=== PATIENT | female | born 1945 | race African-American/Black ===

== ENCOUNTER 2020-06-18 12:06 | Outpatient (CLI) | payer MEDICARE ==
--- NOTE | 2020-06-18 14:16 | MMO ---
Bilateral MAMMO Bilat Screen [facility]. CLINICAL HISTORY: Patient is 75 years old and is seen for screening. The patient has no family history of breast cancer. The patient has no personal history of cancer. VIEWS: The views performed were: bilateral craniocaudal with tomosynthesis and bilateral mediolateral oblique with tomosynthesis. FILMS COMPARED: The present examination has been compared to a prior imaging study performed at [facility] on 04/25/2016. This study has been interpreted with the assistance of computer-aided detection. MAMMOGRAM FINDINGS: There are scattered fibroglandular densities. Benign calcifications are noted bilaterally. There are no suspicious masses, suspicious calcifications, or new areas of architectural distortion. IMPRESSION: THERE IS NO MAMMOGRAPHIC EVIDENCE OF MALIGNANCY. A ROUTINE FOLLOW-UP MAMMOGRAM IN 1 YEAR IS RECOMMENDED. THE RESULTS OF THIS EXAM WERE SENT TO THE PATIENT. ACR BI-RADS Category 2 - Benign finding MAMMOGRAPHY NOTE: 1. A negative mammogram report should not delay a biopsy if a dominant of clinically suspicious mass is present. 2. Approximately 10% to 15% of breast cancers are not detected by mammography. 3. Adenosis and dense breasts may obscure an underlying neoplasm. Reported by: SUSANNA LYNNE MD Electonically Signed: [id number]
== END 2020-06-18 12:07 | disposition home or self-care (01) ==
LOC: BICMAMMO 12:06
PROVIDERS: ATTEND Family Medicine
DX: Z12.31 Encounter for screening mammogram for malignant neoplasm of breast (principal)
CPT/HCPCS: 77063; 77067

== ENCOUNTER 2021-07-15 14:09 | Outpatient (CLI) | payer MEDICARE | END 2021-07-15 14:10 | disposition home or self-care (01) | LOC: BICMAMMO 14:09 | PROVIDERS: ATTEND Family Medicine | DX: Z12.31 Encounter for screening mammogram for malignant neoplasm of breast (principal) | CPT/HCPCS: 77063; 77067 ==

== ENCOUNTER 2021-09-12 16:41 | Inpatient (IN) | payer MEDICARE ==
[2021-09-12 17:15] LABS: Mean Corpuscular HGB CONC 31.5 g/dL (32.0-36.0); Mean Corpuscular Hemoglobin 24.6 pg (27.0-31.0); Mean Corpuscular Volume 78.1 fL (78.0-98.0); Mean Platelet Volume 8.7 fL (7.4-10.4); Platelet Count 716 thou/uL (130-400); RBC Distribution Width 23.5 % (11.5-14.5); Red Blood Cell (RBC) Count 2.46 mill/uL (4.20-5.40); White Blood Cell (WBC) Count 12.8 thou/uL (4.8-10.8)
[2021-09-12] MEDS ORDERED: Diltiazem 125 MG/25 ML ONE (17:20)
[2021-09-12 17:38] LABS: Anisocytosis MODERATE=16-30 cells (100X) (0-5/hpf); Band 11 % (5-11); Hypochromia MODERATE=16-30 cells (100X) (0-5/hpf); Lymphocytes 9 % (21-51); MDiff Complete? YES; Monocytes 7 % (0-10); Neutrophil 73 % (42-75); Platelet Morphology Comment Appears Increased; Reflex for Review?? YES
[2021-09-12 17:50] LABS: ALT (SGPT) 9 U/L (8-55); AST (SGOT) 13 U/L (5-34); Albumin 3.5 g/dL (3.4-4.8); Alkaline Phosphatase 95 U/L (40-110); Anion Gap 16 mmol/L (10-20); BUN (Urea Nitrogen) 37 mg/dL (9.8-20.1); Bilirubin, Total 0.4 mg/dL (0.2-1.2); Calc. Creatinine Clearance 0 mL/min (70-130); Calcium 9.1 mg/dL (7.8-10.44); Carbon Dioxide 26 mmol/L (23-31); Chloride 102 mmol/L (98-107); Glucose 139 mg/dL (83-110); Potassium 4.2 mmol/L (3.5-5.1); Protein, Total 6.5 g/dL (5.8-8.1); Sodium 140 mmol/L (136-145)
[2021-09-12 18:13] LABS: CKMB 1.3 ng/mL (0-6.6)
[2021-09-12] MEDS ORDERED: Ondansetron PF 4 MG/2 ML Vial IVP PRN (19:46)
[2021-09-12] MEDS ORDERED: Pantoprazole 40 MG VIAL ONE (19:47)
[2021-09-12] MEDS ORDERED: Digoxin 0.5 MG/2 ML AMP ONE (19:47)
[2021-09-12] MEDS ORDERED: EPINEPHrine 1 MG/ML VIAL ONE (19:50)
[2021-09-12] MEDS ORDERED: EPINEPHrine 1 MG/10 ML Abboject SYRINGE ONE (19:50)
[2021-09-12 21:40] VITALS: BMI 25.5
[2021-09-12 21:48] LABS: Hemoglobin 6.3 g/dL (12.0-16.0)
[2021-09-12 22:32] LABS: CKMB 1.5 ng/mL (0-6.6)
[2021-09-12 22:45] LABS: INR-International Normal Ratio 1.1; Prothrombin Time 14.1 sec (12.0-14.7)
[2021-09-13] MEDS: Digoxin 0.5 MG/2 ML AMP SLOW IVP SCH ×3 (00:27→13:20)
[2021-09-13 04:22] LABS: Anion Gap 15 mmol/L (10-20); BUN (Urea Nitrogen) 38 mg/dL (9.8-20.1); Calc. Creatinine Clearance 24 mL/min (70-130); Calcium 8.5 mg/dL (7.8-10.44); Carbon Dioxide 25 mmol/L (23-31); Chloride 102 mmol/L (98-107); Glucose 100 mg/dL (83-110); Iron 32 ug/dL (50-170); Iron Binding Capacity, Total 296 mcg/dL (265-497); Potassium 3.9 mmol/L (3.5-5.1); Sodium 138 mmol/L (136-145)
[2021-09-13 05:22] LABS: Hemoglobin 7.2 g/dL (12.0-16.0); Mean Corpuscular Hemoglobin 26.9 pg (27.0-31.0); Mean Corpuscular Volume 81.4 fL (78.0-98.0); Mean Platelet Volume 8.9 fL (7.4-10.4); Platelet Count 533 thou/uL (130-400); RBC Distribution Width 20.1 % (11.5-14.5); Red Blood Cell (RBC) Count 2.69 mill/uL (4.20-5.40)
[2021-09-13 05:32] LABS: SARS-CoV-2 NAA Rapid Test Not Detected (NotDetected)
[2021-09-13 05:39] LABS: Anisocytosis SLIGHT = 6-15 cells (100X) (0-5/hpf); Band 5 % (5-11); Eosinophils 2 % (0-10); Hypochromia SLIGHT = 6-15 cells (100X) (0-5/hpf); Lymphocytes 13 % (21-51); MDiff Complete? YES; Monocytes 7 % (0-10); Neutrophil 73 % (42-75); Nucleated RBC 5 % (0); Platelet Morphology Comment Appears Increased; Target Cells SLIGHT = 2-5 cells (100X) (0-1/hpf); White Blood Cell (WBC) Count 10.8 thou/uL (4.8-10.8)
[2021-09-13 07:43] LABS: Bacteria/HPF None Seen HPF (None Seen); Bilirubin Negative (Negative); Blood, Urine Negative (Negative); Clarity Turbid (Clear); Glucose, Urine (Dipstick) Normal (Negative); Ketone, Urine Negative (Negative); Leukocyte 25 Leu/uL (Negative); Nitrite Negative (Negative); Protein, Urine (Dipstick) 100 mg/dL (Neg-Trace); RBC/HPF 0-3 HPF (0-3); Specific Gravity, Urine 1.017 (1.002-1.036); Urine Culture Reflex No No; Urobilinogen Normal mg/dL (Less than 2); pH, Urine 5.5 (5.0-9.0)
[2021-09-13 07:51] LABS: Hemoglobin 7.2 g/dL (12.0-16.0)
[2021-09-13] MEDS ORDERED: Pantoprazole 40 MG VIAL IVP SCH (09:00)
[2021-09-13] MEDS ORDERED: Sodium Chloride 0.9% 500 ML IV SCH (12:30)
[2021-09-13] MEDS ORDERED: Sodium Chloride 0.9% 1,000 ML IV SCH (12:45)
[2021-09-13 13:09] LABS: Hemoglobin 7.3 g/dL (12.0-16.0)
[2021-09-13] MEDS ORDERED: Norepinephrine 4 MG/4 ML VIAL ONE ×2 (14:31→14:32)
[2021-09-13] MEDS ORDERED: Norepinephrine 8 MG/0.9% NS 250 ML IVPB SCH (15:00)
[2021-09-13] MEDS ORDERED: Furosemide 20 MG/2 ML VIAL SLOW IVP SCH (15:15)
[2021-09-13] MEDS ORDERED: Phenylephrine 0.25% Nasal Spray 15 ML BOT ONE (15:57)
[2021-09-13] MEDS ORDERED: Phenylephrine 40 MG in Sodium Chloride 0.9% 250 ML 250 ML IVPB SCH ×2 (16:00→16:15)
[2021-09-13] MEDS: Vasopressin 20 UNIT, Admixture Fee 1 EACH in Sodium Chloride 0.9% 50 ML IV SCH ×2 (16:05→16:20)
[2021-09-13] MEDS: Pantoprazole 80 MG, Admixture Fee 1 EACH in Sodium Chloride 0.9% 100 ML IVPB SCH (16:05)
[2021-09-13] MEDS ORDERED: Heparin 10,000 UNITS/ 10 ML VIAL SLOW IVP SCH (17:30)
[2021-09-13] MEDS: Heparin 25,000 units/D5W 500 ML IV SCH (18:13)
[2021-09-13 19:41] LABS: Hemoglobin 7.9 g/dL (12.0-16.0); Mean Corpuscular HGB CONC 32.5 g/dL (32.0-36.0); Mean Corpuscular Hemoglobin 26.8 pg (27.0-31.0); Mean Corpuscular Volume 82.7 fL (78.0-98.0); Mean Platelet Volume 8.5 fL (7.4-10.4); Platelet Count 453 thou/uL (130-400); Red Blood Cell (RBC) Count 2.93 mill/uL (4.20-5.40); White Blood Cell (WBC) Count 16.5 thou/uL (4.8-10.8)
[2021-09-14 01:14] LABS: Anion Gap 14 mmol/L (10-20); BUN (Urea Nitrogen) 44 mg/dL (9.8-20.1); Calc. Creatinine Clearance 25 mL/min (70-130); Calcium 7.9 mg/dL (7.8-10.44); Carbon Dioxide 23 mmol/L (23-31); Chloride 107 mmol/L (98-107); Glucose 105 mg/dL (83-110); Magnesium 2.9 mg/dL (1.6-2.6); Potassium 4.1 mmol/L (3.5-5.1); Sodium 140 mmol/L (136-145)
[2021-09-14 01:40] LABS: Hemoglobin 7.8 g/dL (12.0-16.0); Mean Corpuscular HGB CONC 32.7 g/dL (32.0-36.0); Mean Corpuscular Hemoglobin 27.2 pg (27.0-31.0); Mean Corpuscular Volume 83.1 fL (78.0-98.0); Mean Platelet Volume 8.4 fL (7.4-10.4); Platelet Count 457 thou/uL (130-400); RBC Distribution Width 20.5 % (11.5-14.5); Red Blood Cell (RBC) Count 2.87 mill/uL (4.20-5.40); White Blood Cell (WBC) Count 15.7 thou/uL (4.8-10.8)
[2021-09-14 01:41] LABS: Band 14 % (5-11); Lymphocytes 22 % (21-51); MDiff Complete? YES; Monocytes 6 % (0-10); Neutrophil 58 % (42-75); Nucleated RBC 7 % (0)
[2021-09-14 02:05] LABS: PTT 195.3 sec (22.9-36.1)
[2021-09-14] MEDS: Pantoprazole 80 MG, Admixture Fee 1 EACH in Sodium Chloride 0.9% 100 ML IVPB SCH ×3 (02:23→23:37)
[2021-09-14 03:08] LABS: Digoxin 3.93 ng/mL (0.8-2.0)
[2021-09-14 10:25] LABS: Hemoglobin 7.4 g/dL (12.0-16.0); Mean Corpuscular HGB CONC 31.1 g/dL (32.0-36.0); Mean Corpuscular Volume 83.6 fL (78.0-98.0); Mean Platelet Volume 8.6 fL (7.4-10.4); Platelet Count 464 thou/uL (130-400); RBC Distribution Width 20.2 % (11.5-14.5); Red Blood Cell (RBC) Count 2.83 mill/uL (4.20-5.40); White Blood Cell (WBC) Count 13.6 thou/uL (4.8-10.8)
[2021-09-14] MEDS: Heparin 25,000 units/D5W 500 ML IV SCH (17:48)
[2021-09-14] MEDS: Acetaminophen 325 MG TAB PO PRN (17:52)
[2021-09-14 20:58] LABS: Hemoglobin 6.9 g/dL (12.0-16.0); Mean Corpuscular Hemoglobin 28.4 pg (27.0-31.0); Mean Corpuscular Volume 83.5 fL (78.0-98.0); Mean Platelet Volume 8.5 fL (7.4-10.4); Platelet Count 363 thou/uL (130-400); RBC Distribution Width 20.6 % (11.5-14.5); Red Blood Cell (RBC) Count 2.43 mill/uL (4.20-5.40); White Blood Cell (WBC) Count 10.1 thou/uL (4.8-10.8)
[2021-09-15] MEDS: Metoprolol Tartrate 5 MG/5 ML VIAL IVP PRN ×2 (00:41→22:10)
[2021-09-15] MEDS: Acetaminophen 325 MG TAB PO PRN ×2 (02:39→15:15)
[2021-09-15 04:44] LABS: Digoxin 1.84 ng/mL (0.8-2.0)
[2021-09-15 04:51] LABS: Hemoglobin 8.3 g/dL (12.0-16.0); Mean Corpuscular HGB CONC 33.5 g/dL (32.0-36.0); Mean Corpuscular Hemoglobin 28.3 pg (27.0-31.0); Mean Corpuscular Volume 84.5 fL (78.0-98.0); Platelet Count 304 thou/uL (130-400); RBC Distribution Width 19.9 % (11.5-14.5); Red Blood Cell (RBC) Count 2.94 mill/uL (4.20-5.40); White Blood Cell (WBC) Count 10.3 thou/uL (4.8-10.8)
[2021-09-15 05:11] LABS: Anion Gap 13 mmol/L (10-20); BUN (Urea Nitrogen) 26 mg/dL (9.8-20.1); Calc. Creatinine Clearance 57 mL/min (70-130); Calcium 8.2 mg/dL (7.8-10.44); Carbon Dioxide 24 mmol/L (23-31); Chloride 107 mmol/L (98-107); Glucose 85 mg/dL (83-110); Magnesium 2.4 mg/dL (1.6-2.6); Potassium 3.7 mmol/L (3.5-5.1); Sodium 140 mmol/L (136-145)
[2021-09-15 05:28] LABS: #Eosinphils 0.5 thou/uL (0.0-0.7); #Lymphocytes 1.4 thou/uL (1.20-3.40); #Monocytes 0.8 thou/uL (0.11-0.59); #Neutrophils 7.5 thou/uL (1.40-6.50); %Basophils 0.3 % (0.0-1.0); %Eosinophils 4.7 % (0.0-10.0); %Lymphocytes 13.5 % (21.0-51.0); %Monocytes 8.2 % (0.0-10.0); %Neutrophils 73.3 % (42.0-75.0)
[2021-09-15] MEDS: Pantoprazole 80 MG, Admixture Fee 1 EACH in Sodium Chloride 0.9% 100 ML IVPB SCH (06:43)
[2021-09-15] MEDS ORDERED: Mag-Al Plus 1200 MG/1200 MG/120 MG/30 ML UDCUP PO PRN (09:12)
[2021-09-15 12:44] LABS: Hemoglobin 8.4 g/dL (12.0-16.0); Mean Corpuscular HGB CONC 33.3 g/dL (32.0-36.0); Mean Corpuscular Volume 84.2 fL (78.0-98.0); Mean Platelet Volume 8.5 fL (7.4-10.4); Platelet Count 387 thou/uL (130-400); RBC Distribution Width 20.3 % (11.5-14.5); Red Blood Cell (RBC) Count 3.01 mill/uL (4.20-5.40); White Blood Cell (WBC) Count 12.2 thou/uL (4.8-10.8)
[2021-09-15 13:00] LABS: PTT 136.9 sec (22.9-36.1)
[2021-09-15] MEDS: Heparin 25,000 units/D5W 500 ML IV SCH (16:21)
[2021-09-15 16:57] LABS: CKMB 2.2 ng/mL (0-6.6)
[2021-09-15] MEDS: Apixaban 5 MG TAB PO SCH (21:18)
[2021-09-15] MEDS: Pantoprazole 40 MG VIAL IVP SCH (21:19)
[2021-09-15 22:00] LABS: Critical Call Chem Troponin I RESULT DECREASING
[2021-09-15 22:19] LABS: CKMB 1.4 ng/mL (0-6.6)
[2021-09-16] MEDS: Acetaminophen 325 MG TAB PO PRN ×2 (06:52→19:46)
[2021-09-16 07:30] LABS: #Eosinphils 0.4 thou/uL (0.0-0.7); #Lymphocytes 1.4 thou/uL (1.20-3.40); #Monocytes 1.1 thou/uL (0.11-0.59); #Neutrophils 10.4 thou/uL (1.40-6.50); %Basophils 0.1 % (0.0-1.0); %Eosinophils 2.9 % (0.0-10.0); %Lymphocytes 10.7 % (21.0-51.0); %Monocytes 8.1 % (0.0-10.0); %Neutrophils 78.2 % (42.0-75.0); Hemoglobin 8.9 g/dL (12.0-16.0); Mean Corpuscular HGB CONC 31.9 g/dL (32.0-36.0); Mean Corpuscular Volume 84.6 fL (78.0-98.0); Platelet Count 390 thou/uL (130-400); RBC Distribution Width 20.2 % (11.5-14.5); White Blood Cell (WBC) Count 13.3 thou/uL (4.8-10.8)
[2021-09-16 07:45] LABS: Anion Gap 13 mmol/L (10-20); BUN (Urea Nitrogen) 15 mg/dL (9.8-20.1); Calc. Creatinine Clearance 73 mL/min (70-130); Calcium 8.5 mg/dL (7.8-10.44); Carbon Dioxide 26 mmol/L (23-31); Chloride 107 mmol/L (98-107); Glucose 86 mg/dL (83-110); Potassium 3.8 mmol/L (3.5-5.1); Sodium 142 mmol/L (136-145)
[2021-09-16 08:17] LABS: Band 3 % (5-11); Eosinophils 3 % (0-10); Hypochromia SLIGHT = 6-15 cells (100X) (0-5/hpf); Lymphocytes 16 % (21-51); MDiff Complete? YES; Monocytes 8 % (0-10); Neutrophil 70 % (42-75); Ovalocytes SLIGHT = 2-5 cells (100X) (0-1/hpf); Platelet Morphology Comment Appears Adequate; Polychromasia SLIGHT = 2-3 cells (100X) (0-2/hpf)
[2021-09-16] MEDS ORDERED: Iopamidol-370 76% 500 ML 1 ML ONE (09:12)
[2021-09-16] MEDS: Apixaban 5 MG TAB PO SCH ×2 (09:42→19:46)
[2021-09-16] MEDS: Pantoprazole 40 MG VIAL IVP SCH ×2 (09:43→19:46)
[2021-09-17 05:12] LABS: Hemoglobin 8.2 g/dL (12.0-16.0); Mean Corpuscular HGB CONC 32.2 g/dL (32.0-36.0); Mean Corpuscular Volume 83.8 fL (78.0-98.0); Mean Platelet Volume 8.6 fL (7.4-10.4); Platelet Count 434 thou/uL (130-400); RBC Distribution Width 20.3 % (11.5-14.5); Red Blood Cell (RBC) Count 3.03 mill/uL (4.20-5.40); White Blood Cell (WBC) Count 12.1 thou/uL (4.8-10.8)
[2021-09-17 05:29] LABS: Anion Gap 10 mmol/L (10-20); BUN (Urea Nitrogen) 10 mg/dL (9.8-20.1); Calc. Creatinine Clearance 77 mL/min (70-130); Calcium 8.4 mg/dL (7.8-10.44); Carbon Dioxide 27 mmol/L (23-31); Chloride 108 mmol/L (98-107); Glucose 92 mg/dL (83-110); Potassium 3.6 mmol/L (3.5-5.1); Sodium 141 mmol/L (136-145)
[2021-09-17 05:55] LABS: #Basophils 0.1 thou/uL (0.0-0.2); #Eosinphils 1.5 thou/uL (0.0-0.7); #Lymphocytes 1.6 thou/uL (1.20-3.40); #Monocytes 1.1 thou/uL (0.11-0.59); #Neutrophils 7.8 thou/uL (1.40-6.50); %Basophils 0.4 % (0.0-1.0); %Lymphocytes 13.2 % (21.0-51.0); %Monocytes 9.4 % (0.0-10.0)
[2021-09-17] MEDS ORDERED: Electrolyte Replacement Protocol FS PRN (07:45)
[2021-09-17] MEDS ORDERED: Electrolyte Replacement Protocol 1 EACH FS SCH (07:45)
[2021-09-17] MEDS: Atorvastatin Calcium 10 MG TAB PO SCH (09:08)
[2021-09-17] MEDS: Lisinopril 10 MG TAB PO SCH (09:08)
[2021-09-17] MEDS: Apixaban 5 MG TAB PO SCH ×2 (09:08→20:27)
[2021-09-17] MEDS: Pantoprazole 40 MG VIAL IVP SCH ×2 (09:09→20:27)
[2021-09-18 04:06] LABS: #Eosinphils 1.5 thou/uL (0.0-0.7); #Lymphocytes 1.7 thou/uL (1.20-3.40); #Monocytes 1.2 thou/uL (0.11-0.59); #Neutrophils 7.7 thou/uL (1.40-6.50); %Basophils 0.1 % (0.0-1.0); %Eosinophils 12.1 % (0.0-10.0); %Lymphocytes 13.8 % (21.0-51.0); %Monocytes 10.2 % (0.0-10.0); %Neutrophils 63.9 % (42.0-75.0); Hemoglobin 8.1 g/dL (12.0-16.0); Mean Corpuscular HGB CONC 31.6 g/dL (32.0-36.0); Mean Corpuscular Hemoglobin 26.5 pg (27.0-31.0); Mean Corpuscular Volume 83.8 fL (78.0-98.0); Platelet Count 424 thou/uL (130-400); RBC Distribution Width 20.7 % (11.5-14.5); Red Blood Cell (RBC) Count 3.04 mill/uL (4.20-5.40)
[2021-09-18 04:38] LABS: Anion Gap 11 mmol/L (10-20); BUN (Urea Nitrogen) 8 mg/dL (9.8-20.1); Calc. Creatinine Clearance 74 mL/min (70-130); Calcium 8.4 mg/dL (7.8-10.44); Carbon Dioxide 26 mmol/L (23-31); Chloride 108 mmol/L (98-107); Glucose 92 mg/dL (83-110); Magnesium 1.7 mg/dL (1.6-2.6); Phosphorus 2.7 mg/dL (2.3-4.7); Potassium 3.5 mmol/L (3.5-5.1); Sodium 141 mmol/L (136-145)
[2021-09-18] MEDS ORDERED: Magnesium 2 GM/50 ML(in water) 2 GM in Premix Bag 1 BAG IVPB SCH (05:00)
[2021-09-18] MEDS ORDERED: Potassium Chloride 40 MEQ in Sodium Chloride 0.9% 250 ML 250 ML IVPB SCH (06:00)
[2021-09-18] MEDS: Lisinopril 10 MG TAB PO SCH (08:06)
[2021-09-18] MEDS: Atorvastatin Calcium 10 MG TAB PO SCH (08:06)
[2021-09-18] MEDS: Apixaban 5 MG TAB PO SCH ×2 (08:06→20:16)
[2021-09-18] MEDS: Pantoprazole 40 MG VIAL IVP SCH (08:07)
[2021-09-19 05:03] LABS: #Eosinphils 1.2 thou/uL (0.0-0.7); #Lymphocytes 2.3 thou/uL (1.20-3.40); #Monocytes 1.1 thou/uL (0.11-0.59); #Neutrophils 6.8 thou/uL (1.40-6.50); %Basophils 0.2 % (0.0-1.0); %Eosinophils 10.3 % (0.0-10.0); %Lymphocytes 20.4 % (21.0-51.0); %Monocytes 9.6 % (0.0-10.0); %Neutrophils 59.6 % (42.0-75.0); Hemoglobin 8.4 g/dL (12.0-16.0); Mean Corpuscular HGB CONC 30.7 g/dL (32.0-36.0); Mean Corpuscular Hemoglobin 25.8 pg (27.0-31.0); Mean Corpuscular Volume 84.2 fL (78.0-98.0); Mean Platelet Volume 8.6 fL (7.4-10.4); Platelet Count 449 thou/uL (130-400); Red Blood Cell (RBC) Count 3.25 mill/uL (4.20-5.40); White Blood Cell (WBC) Count 11.4 thou/uL (4.8-10.8)
[2021-09-19 05:28] LABS: Anion Gap 12 mmol/L (10-20); BUN (Urea Nitrogen) 7 mg/dL (9.8-20.1); Calc. Creatinine Clearance 74 mL/min (70-130); Calcium 8.7 mg/dL (7.8-10.44); Carbon Dioxide 25 mmol/L (23-31); Chloride 108 mmol/L (98-107); Glucose 97 mg/dL (83-110); Magnesium 1.8 mg/dL (1.6-2.6); Sodium 141 mmol/L (136-145)
[2021-09-19] MEDS ORDERED: Magnesium 2 GM/50 ML(in water) 2 GM in Premix Bag 1 BAG IVPB SCH (07:00)
[2021-09-19] MEDS: Apixaban 5 MG TAB PO SCH ×2 (09:11→20:39)
[2021-09-19] MEDS: Atorvastatin Calcium 10 MG TAB PO SCH (09:12)
[2021-09-19 11:58] LABS: SARS-CoV-2 PCR by NAA Not Detected (NotDetected)
[2021-09-19] MEDS: Lisinopril 10 MG TAB PO SCH (15:28)
[2021-09-20] MEDS: Lisinopril 10 MG TAB PO SCH (08:37)
[2021-09-20] MEDS: Apixaban 5 MG TAB PO SCH (08:40)
[2021-09-20] MEDS: Atorvastatin Calcium 10 MG TAB PO SCH (08:40)
[2021-09-20 12:01] VITALS: BP 169/74; TEMP 98.1
[2021-09-23] MEDS ORDERED: Ergocalciferol 1.25 MG(50,000 UNITS) CAP PO SCH (09:00)
== END 2021-09-20 13:22 | disposition home or self-care (01) | DRG 175 ==
LOC: ERS 16:41 → IMCU/EMU 18:15 → CCU 09-13 14:35 → IMCU/EMU 09-16 13:32 → NEURO 09-20 00:54
PROVIDERS: ADMIT Family Medicine; ATTEND Internal Medicine
PROC: 30233N1 Transfusion of Nonautologous Red Blood Cells into Peripheral Vein, Percutaneous Approach (ICD-10-PCS; 2021-09-12)
PROC: 3E03317 Introduction of Other Thrombolytic into Peripheral Vein, Percutaneous Approach (ICD-10-PCS; principal; 2021-09-13)
PROC: 5A09357 Assistance with Respiratory Ventilation, Less than 24 Consecutive Hours, Continuous Positive Airway Pressure (ICD-10-PCS; 2021-09-13)
PROC: 03HY32Z Insertion of Monitoring Device into Upper Artery, Percutaneous Approach (ICD-10-PCS; 2021-09-13)
PROC: 3E033XZ Introduction of Vasopressor into Peripheral Vein, Percutaneous Approach (ICD-10-PCS; 2021-09-13)
DX: I26.99 Other pulmonary embolism without acute cor pulmonale (principal); Z66 Do not resuscitate; Z20.822 Contact with and (suspected) exposure to COVID-19; I21.A1 Myocardial infarction type 2; N17.0 Acute kidney failure with tubular necrosis; J96.01 Acute respiratory failure with hypoxia; R57.0 Cardiogenic shock; I48.19 Other persistent atrial fibrillation; K92.2 Gastrointestinal hemorrhage, unspecified; D62 Acute posthemorrhagic anemia; I13.0 Hypertensive heart and chronic kidney disease with heart failure and stage 1 through stage 4 chronic kidney disease, or unspecified chronic kidney disease; E78.5 Hyperlipidemia, unspecified; M19.90 Unspecified osteoarthritis, unspecified site; I08.2 Rheumatic disorders of both aortic and tricuspid valves; N18.2 Chronic kidney disease, stage 2 (mild); D63.1 Anemia in chronic kidney disease; E83.42 Hypomagnesemia; I12.9 Hypertensive chronic kidney disease with stage 1 through stage 4 chronic kidney disease, or unspecified chronic kidney disease; E86.0 Dehydration; I50.810 Right heart failure, unspecified; Z90.49 Acquired absence of other specified parts of digestive tract; Z85.038 Personal history of other malignant neoplasm of large intestine; Z79.899 Other long term (current) drug therapy; Z82.49 Family history of ischemic heart disease and other diseases of the circulatory system
CPT/HCPCS: 36415; 36430; 70450; 71045; 71275; 80048; 80053; 80162; 81001; 82274; 82378; 82553; 82728; 83540; 83550; 83735; 83880; 84100; 84443; 84484; 85025; 85060; 85379; 85610; 85730; 86850; 86900; 86901; 93005; 93010; 93306; 93970; 96365; 96374; 96375; C9113; J0171; J1160; J1644; J1940; J2370; J2997; J3475; J3480; J3490; J7030; J7050; P9016; Q9967; U0002; U0003; U0005

== ENCOUNTER 2021-10-28 13:06 | Inpatient (IN) | payer MEDICARE ==
[2021-10-28 14:07] LABS: #Lymphocytes 1.2 thou/uL (1.20-3.40); #Monocytes 0.4 thou/uL (0.11-0.59); #Neutrophils 4.9 thou/uL (1.40-6.50); %Basophils 0.1 % (0.0-1.0); %Eosinophils 0.3 % (0.0-10.0); %Lymphocytes 17.8 % (21.0-51.0); %Monocytes 6.7 % (0.0-10.0); %Neutrophils 75.1 % (42.0-75.0); Hemoglobin 10.4 g/dL (12.0-16.0); Mean Corpuscular HGB CONC 31.9 g/dL (32.0-36.0); Mean Corpuscular Hemoglobin 25.3 pg (27.0-31.0); Mean Corpuscular Volume 79.3 fL (78.0-98.0); Mean Platelet Volume 6.9 fL (7.4-10.4); Platelet Count 294 thou/uL (130-400); RBC Distribution Width 22.1 % (11.5-14.5); Red Blood Cell (RBC) Count 4.09 mill/uL (4.20-5.40); White Blood Cell (WBC) Count 6.5 thou/uL (4.8-10.8)
[2021-10-28] MEDS ORDERED: Ondansetron PF 4 MG/2 ML Vial ONE (14:14)
[2021-10-28 14:17] LABS: ALT (SGPT) 7 U/L (8-55); AST (SGOT) 14 U/L (5-34); Albumin 4.1 g/dL (3.4-4.8); Alkaline Phosphatase 61 U/L (40-110); Anion Gap 17 mmol/L (10-20); BUN (Urea Nitrogen) 5 mg/dL (9.8-20.1); Bilirubin, Total 1.2 mg/dL (0.2-1.2); Calc. Creatinine Clearance 0 mL/min (70-130); Calcium 10.1 mg/dL (7.8-10.44); Carbon Dioxide 24 mmol/L (23-31); Chloride 106 mmol/L (98-107); Globulin 3.6 g/dL (2.4-3.5); Glucose 100 mg/dL (83-110); Lipase 11 U/L (8-78); Potassium 3.5 mmol/L (3.5-5.1); Protein, Total 7.7 g/dL (5.8-8.1); Sodium 143 mmol/L (136-145)
[2021-10-28 14:56] LABS: Magnesium 1.8 mg/dL (1.6-2.6)
[2021-10-28] MEDS ORDERED: HYDROcodone/Acetaminophen 5/325 mg Tablet PO PRN (16:05)
[2021-10-28] MEDS ORDERED: Bisacodyl 10 MG SUPP PR SCH (16:15)
[2021-10-28] MEDS ORDERED: Polyethylene Glycol 3350 17 GM Packet PO SCH (16:15)
[2021-10-28] MEDS ORDERED: Furosemide 40 MG TAB PO SCH (16:45)
[2021-10-28 16:53] LABS: Troponin I 0.034 ng/mL (< 0.028)
[2021-10-28 16:56] LABS: Bilirubin Negative (Negative); Blood, Urine Negative (Negative); Clarity Clear (Clear); Glucose, Urine (Dipstick) Normal (Negative); Ketone, Urine 40 mg/dL (Negative); Leukocyte Negative Leu/uL (Negative); Nitrite Negative (Negative); Protein, Urine (Dipstick) Negative (Neg-Trace); Specific Gravity, Urine 1.011 (1.002-1.036); Urobilinogen Normal mg/dL (Less than 2); pH, Urine 8.5 (5.0-9.0)
[2021-10-28 19:33] LABS: Troponin I 0.037 ng/mL (< 0.028)
[2021-10-28] MEDS: Acetaminophen 325 MG TAB PO PRN (20:19)
[2021-10-28] MEDS: Senokot S 8.6-50 MG TAB PO SCH (20:19)
[2021-10-28] MEDS: Apixaban 5 MG TAB PO SCH (20:19)
[2021-10-28 22:57] LABS: Troponin I 0.053 ng/mL (< 0.028)
[2021-10-29 05:11] LABS: Anion Gap 13 mmol/L (10-20); BUN (Urea Nitrogen) 4 mg/dL (9.8-20.1); Calc. Creatinine Clearance 74 mL/min (70-130); Calcium 9.5 mg/dL (7.8-10.44); Carbon Dioxide 24 mmol/L (23-31); Chloride 105 mmol/L (98-107); Glucose 124 mg/dL (83-110); Potassium 3.1 mmol/L (3.5-5.1); Sodium 139 mmol/L (136-145)
[2021-10-29 05:42] LABS: #Lymphocytes 1.5 thou/uL (1.20-3.40); #Monocytes 0.6 thou/uL (0.11-0.59); %Basophils 0.1 % (0.0-1.0); %Eosinophils 0.5 % (0.0-10.0); %Monocytes 6.8 % (0.0-10.0); %Neutrophils 76.6 % (42.0-75.0); Anisocytosis SLIGHT = 6-15 cells (100X) (0-5/hpf); Large Platelets SLIGHT; MDiff Complete? YES; Mean Corpuscular HGB CONC 31.9 g/dL (32.0-36.0); Mean Corpuscular Hemoglobin 25.4 pg (27.0-31.0); Mean Corpuscular Volume 79.8 fL (78.0-98.0); Platelet Count 310 thou/uL (130-400); Platelet Morphology Comment Appears Adequate; RBC Distribution Width 21.9 % (11.5-14.5); Red Blood Cell (RBC) Count 3.94 mill/uL (4.20-5.40); White Blood Cell (WBC) Count 9.1 thou/uL (4.8-10.8)
[2021-10-29] MEDS: Apixaban 5 MG TAB PO SCH ×2 (09:24→20:57)
[2021-10-29 12:35] LABS: SARS-CoV-2 PCR by NAA Not Detected (NotDetected)
[2021-10-29] MEDS ORDERED: Potassium Chloride 20 MEQ TAB PO SCH (13:45)
[2021-10-29] MEDS ORDERED: Electrolyte Replacement Protocol 1 EACH FS PRN (13:45)
[2021-10-29] MEDS ORDERED: Magnesium 2 GM/50 ML(in water) 2 GM in Premix Bag 1 BAG IVPB SCH (13:45)
[2021-10-29] MEDS ORDERED: PROPOFOL 200 MG/20 ML VIAL ONE (14:44)
[2021-10-29] MEDS ORDERED: Lidocaine 1% PF 5 ML VIAL ONE (14:44)
[2021-10-29] MEDS: Senokot S 8.6-50 MG TAB PO SCH ×2 (16:17→20:57)
[2021-10-29] MEDS: Polyethylene Glycol 3350 17 GM Packet PO SCH (16:17)
[2021-10-29] MEDS: Furosemide 40 MG TAB PO SCH (16:17)
[2021-10-29] MEDS: Acetaminophen 325 MG TAB PO PRN (20:57)
[2021-10-29] MEDS: Ondansetron PF 4 MG/2 ML Vial IVP PRN (20:58)
[2021-10-30] MEDS ORDERED: Metoprolol Tartrate 5 MG/5 ML VIAL IVP SCH (01:00)
[2021-10-30 05:17] LABS: Anion Gap 13 mmol/L (10-20); BUN (Urea Nitrogen) 5 mg/dL (9.8-20.1); Calc. Creatinine Clearance 66 mL/min (70-130); Calcium 9.1 mg/dL (7.8-10.44); Carbon Dioxide 24 mmol/L (23-31); Chloride 106 mmol/L (98-107); Glucose 93 mg/dL (83-110); Phosphorus 3.3 mg/dL (2.3-4.7); Potassium 3.5 mmol/L (3.5-5.1); Sodium 139 mmol/L (136-145)
[2021-10-30 05:21] LABS: #Lymphocytes 1.4 thou/uL (1.20-3.40); #Monocytes 0.7 thou/uL (0.11-0.59); #Neutrophils 6.3 thou/uL (1.40-6.50); %Basophils 0.4 % (0.0-1.0); %Eosinophils 0.5 % (0.0-10.0); %Lymphocytes 16.1 % (21.0-51.0); %Monocytes 8.6 % (0.0-10.0); %Neutrophils 74.5 % (42.0-75.0); Hemoglobin 10.2 g/dL (12.0-16.0); Large Platelets SLIGHT; MDiff Complete? YES; Mean Corpuscular HGB CONC 31.8 g/dL (32.0-36.0); Mean Corpuscular Hemoglobin 25.4 pg (27.0-31.0); Mean Corpuscular Volume 79.9 fL (78.0-98.0); Mean Platelet Volume 7.8 fL (7.4-10.4); Platelet Count 291 thou/uL (130-400); Platelet Morphology Comment Appears Adequate; RBC Distribution Width 21.9 % (11.5-14.5); Red Blood Cell (RBC) Count 4.04 mill/uL (4.20-5.40); White Blood Cell (WBC) Count 8.5 thou/uL (4.8-10.8)
[2021-10-30] MEDS ORDERED: Magnesium 2 GM/50 ML(in water) 2 GM in Premix Bag 1 BAG IVPB SCH (05:45)
[2021-10-30] MEDS ORDERED: Potassium Chloride 20 MEQ TAB PO SCH (05:45)
[2021-10-30] MEDS ORDERED: Dronedarone HCl 400 MG TAB PO SCH (08:30)
[2021-10-30] MEDS: Furosemide 40 MG TAB PO SCH (08:58)
[2021-10-30] MEDS: Apixaban 5 MG TAB PO SCH ×2 (08:59→20:27)
[2021-10-30] MEDS: Senokot S 8.6-50 MG TAB PO SCH ×2 (08:59→20:27)
[2021-10-30] MEDS: Polyethylene Glycol 3350 17 GM Packet PO SCH (08:59)
[2021-10-30] MEDS: Dronedarone HCl 400 MG TAB PO SCH (17:33)
[2021-10-31 05:05] LABS: Albumin 3.3 g/dL (3.4-4.8); Anion Gap 14 mmol/L (10-20); BUN (Urea Nitrogen) 22 mg/dL (9.8-20.1); BUN/Creatinine Ratio 22.22; Calc. Creatinine Clearance 54 mL/min (70-130); Carbon Dioxide 23 mmol/L (23-31); Chloride 106 mmol/L (98-107); Glucose 99 mg/dL (83-110); Magnesium 2.1 mg/dL (1.6-2.6); Phosphorus 2.7 mg/dL (2.3-4.7); Potassium 3.7 mmol/L (3.5-5.1); Sodium 139 mmol/L (136-145)
[2021-10-31 06:12] LABS: #Lymphocytes 0.6 thou/uL (1.20-3.40); #Monocytes 0.5 thou/uL (0.11-0.59); #Neutrophils 8.8 thou/uL (1.40-6.50); %Basophils 0.2 % (0.0-1.0); %Eosinophils 0.1 % (0.0-10.0); %Lymphocytes 5.7 % (21.0-51.0); %Monocytes 5.5 % (0.0-10.0); %Neutrophils 88.6 % (42.0-75.0); Anisocytosis SLIGHT = 6-15 cells (100X) (0-5/hpf); Hemoglobin 9.7 g/dL (12.0-16.0); MDiff Complete? YES; Mean Corpuscular HGB CONC 31.8 g/dL (32.0-36.0); Mean Corpuscular Hemoglobin 25.5 pg (27.0-31.0); Mean Corpuscular Volume 80.4 fL (78.0-98.0); Mean Platelet Volume 8.3 fL (7.4-10.4); Platelet Count 251 thou/uL (130-400); RBC Distribution Width 22.8 % (11.5-14.5); Red Blood Cell (RBC) Count 3.81 mill/uL (4.20-5.40); Target Cells SLIGHT = 2-5 cells (100X) (0-1/hpf); White Blood Cell (WBC) Count 9.9 thou/uL (4.8-10.8)
[2021-10-31] MEDS ORDERED: Furosemide 40 MG TAB PO SCH (07:34)
[2021-10-31] MEDS ORDERED: Furosemide 20 MG TAB PO SCH (07:45)
[2021-10-31] MEDS: Dronedarone HCl 400 MG TAB PO SCH ×2 (09:07→17:24)
[2021-10-31] MEDS: Senokot S 8.6-50 MG TAB PO SCH ×2 (09:07→20:54)
[2021-10-31] MEDS: Polyethylene Glycol 3350 17 GM Packet PO SCH (09:07)
[2021-10-31] MEDS: Apixaban 5 MG TAB PO SCH ×2 (09:07→20:54)
[2021-10-31] MEDS: Furosemide 40 MG TAB PO SCH (09:15)
[2021-10-31] MEDS ORDERED: Potassium Chloride 20 MEQ TAB PO SCH (17:45)
[2021-10-31] MEDS: Atorvastatin Calcium 20 MG TAB PO SCH (20:54)
[2021-11-01] MEDS ORDERED: Sodium Chloride 0.9% 500 ML IV SCH ×4 (01:00→22:30)
[2021-11-01] MEDS: Acetaminophen 325 MG TAB PO PRN (01:16)
[2021-11-01] MEDS ORDERED: Midodrine HCl 5 MG TAB PO SCH ×2 (04:14→21:30)
[2021-11-01] MEDS ORDERED: Furosemide 20 MG TAB PO SCH (07:30)
[2021-11-01] MEDS: Apixaban 5 MG TAB PO SCH (08:31)
[2021-11-01] MEDS: Dronedarone HCl 400 MG TAB PO SCH ×2 (08:32→16:36)
[2021-11-01] MEDS: Senokot S 8.6-50 MG TAB PO SCH ×2 (08:32→20:07)
[2021-11-01] MEDS: Polyethylene Glycol 3350 17 GM Packet PO SCH (08:32)
[2021-11-01] MEDS ORDERED: Ketamine 50 MG/ML (10ML VIAL) ONE (09:59)
[2021-11-01] MEDS ORDERED: Digoxin 0.5 MG/2 ML AMP SLOW IVP SCH ×2 (15:30→16:30)
[2021-11-01 15:34] LABS: #Basophils 0.1 thou/uL (0.0-0.2); #Monocytes 0.6 thou/uL (0.11-0.59); #Neutrophils 8.5 thou/uL (1.40-6.50); %Basophils 0.6 % (0.0-1.0); %Eosinophils 0.2 % (0.0-10.0); %Lymphocytes 9.7 % (21.0-51.0); %Monocytes 6.3 % (0.0-10.0); %Neutrophils 83.3 % (42.0-75.0); Hemoglobin 7.6 g/dL (12.0-16.0); Mean Corpuscular HGB CONC 31.6 g/dL (32.0-36.0); Mean Corpuscular Hemoglobin 25.1 pg (27.0-31.0); Mean Corpuscular Volume 79.4 fL (78.0-98.0); Mean Platelet Volume 7.3 fL (7.4-10.4); Platelet Count 199 thou/uL (130-400); RBC Distribution Width 22.8 % (11.5-14.5); Red Blood Cell (RBC) Count 3.05 mill/uL (4.20-5.40); White Blood Cell (WBC) Count 10.2 thou/uL (4.8-10.8)
[2021-11-01 17:09] LABS: Anion Gap 12 mmol/L (10-20); BUN (Urea Nitrogen) 66 mg/dL (9.8-20.1); Calc. Creatinine Clearance 28 mL/min (70-130); Calcium 8.7 mg/dL (7.8-10.44); Carbon Dioxide 21 mmol/L (23-31); Chloride 110 mmol/L (98-107); Glucose 103 mg/dL (83-110); Potassium 3.4 mmol/L (3.5-5.1); Sodium 140 mmol/L (136-145)
[2021-11-01] MEDS ORDERED: Digoxin 0.25 MG TAB PO SCH (18:30)
[2021-11-01] MEDS ORDERED: K-Phos Neutral 250 MG TAB PO SCH (19:15)
[2021-11-01] MEDS ORDERED: Potassium Chloride 20 MEQ TAB PO SCH (19:15)
[2021-11-01] MEDS: Ondansetron PF 4 MG/2 ML Vial IVP PRN (19:31)
[2021-11-01] MEDS: Pantoprazole 40 MG VIAL IVP SCH (20:01)
[2021-11-01] MEDS: Atorvastatin Calcium 20 MG TAB PO SCH (20:01)
[2021-11-01] MEDS: Sodium Chloride 0.9% 1,000 ML IV SCH (20:04)
[2021-11-01 21:11] LABS: Hemoglobin 6.8 g/dL (12.0-16.0); Platelet Count 168 thou/uL (130-400)
[2021-11-01] MEDS ORDERED: Magnesium 2 GM/50 ML(in water) 2 GM in Premix Bag 1 BAG IVPB SCH (22:00)
[2021-11-01] MEDS ORDERED: Norepinephrine 8 MG/0.9% NS 250 ML IVPB SCH (22:30)
[2021-11-01] MEDS ORDERED: Pantoprazole 40 MG VIAL IVP SCH (22:30)
[2021-11-01] MEDS: Octreotide Acetate 1,250 MCG in Sodium Chloride 0.9% 250 ML 250 ML IVPB SCH (23:49)
[2021-11-02] MEDS: Sodium Chloride 0.9% 1,000 ML IV SCH ×3 (03:26→20:08)
[2021-11-02] MEDS ORDERED: Sodium Chloride 0.9% 1,000 ML IV SCH (04:00)
[2021-11-02 06:49] LABS: #Basophils 0.1 thou/uL (0.0-0.2); #Eosinphils 0.1 thou/uL (0.0-0.7); #Lymphocytes 1.8 thou/uL (1.20-3.40); #Monocytes 0.8 thou/uL (0.11-0.59); #Neutrophils 4.2 thou/uL (1.40-6.50); %Basophils 1.4 % (0.0-1.0); %Eosinophils 1.7 % (0.0-10.0); %Lymphocytes 25.7 % (21.0-51.0); %Monocytes 10.8 % (0.0-10.0); %Neutrophils 60.4 % (42.0-75.0); Hemoglobin 7.6 g/dL (12.0-16.0); Mean Corpuscular HGB CONC 31.8 g/dL (32.0-36.0); Mean Corpuscular Hemoglobin 26.6 pg (27.0-31.0); Mean Corpuscular Volume 83.5 fL (78.0-98.0); Mean Platelet Volume 8.5 fL (7.4-10.4); Platelet Count 183 thou/uL (130-400); RBC Distribution Width 21.3 % (11.5-14.5); Red Blood Cell (RBC) Count 2.87 mill/uL (4.20-5.40)
[2021-11-02 06:52] LABS: Reticulocyte Count 2.5 % (0.5-1.5)
[2021-11-02 07:16] LABS: ALT (SGPT) 8 U/L (8-55); AST (SGOT) 17 U/L (5-34); Albumin 2.5 g/dL (3.4-4.8); Alkaline Phosphatase 40 U/L (40-110); Anion Gap 12 mmol/L (10-20); BUN (Urea Nitrogen) 64 mg/dL (9.8-20.1); Bilirubin, Total 0.6 mg/dL (0.2-1.2); Calc. Creatinine Clearance 30 mL/min (70-130); Calcium 8.3 mg/dL (7.8-10.44); Carbon Dioxide 17 mmol/L (23-31); Chloride 116 mmol/L (98-107); Globulin 2.3 g/dL (2.4-3.5); Glucose 127 mg/dL (83-110); Magnesium 2.5 mg/dL (1.6-2.6); Phosphorus 2.8 mg/dL (2.3-4.7); Potassium 4.3 mmol/L (3.5-5.1); Protein, Total 4.8 g/dL (5.8-8.1); Sodium 141 mmol/L (136-145)
[2021-11-02] MEDS: Dronedarone HCl 400 MG TAB PO SCH (08:31)
[2021-11-02] MEDS: Pantoprazole 40 MG VIAL IVP SCH ×2 (08:36→20:09)
[2021-11-02] MEDS: Senokot S 8.6-50 MG TAB PO SCH (08:36)
[2021-11-02] MEDS ORDERED: Digoxin 0.25 MG TAB PO SCH (09:00)
[2021-11-02] MEDS: Acetaminophen 325 MG TAB PO PRN ×2 (09:49→20:11)
[2021-11-02] MEDS: Polyethylene Glycol 3350 17 GM Packet PO SCH (10:09)
[2021-11-02] MEDS ORDERED: GoLYTELY 4,000 ml Bottle PO SCH (11:30)
[2021-11-02 14:28] LABS: #Basophils 0.1 thou/uL (0.0-0.2); #Eosinphils 0.2 thou/uL (0.0-0.7); #Lymphocytes 1.2 thou/uL (1.20-3.40); #Monocytes 0.6 thou/uL (0.11-0.59); #Neutrophils 4.7 thou/uL (1.40-6.50); %Basophils 1.3 % (0.0-1.0); %Eosinophils 2.4 % (0.0-10.0); %Lymphocytes 18.2 % (21.0-51.0); %Monocytes 9.1 % (0.0-10.0); %Neutrophils 68.9 % (42.0-75.0); Hemoglobin 7.8 g/dL (12.0-16.0); Mean Corpuscular Hemoglobin 26.8 pg (27.0-31.0); Mean Corpuscular Volume 83.8 fL (78.0-98.0); Mean Platelet Volume 8.9 fL (7.4-10.4); Platelet Count 184 thou/uL (130-400); RBC Distribution Width 21.2 % (11.5-14.5); Red Blood Cell (RBC) Count 2.89 mill/uL (4.20-5.40); White Blood Cell (WBC) Count 6.8 thou/uL (4.8-10.8)
[2021-11-02 14:50] LABS: Anion Gap 13 mmol/L (10-20); BUN (Urea Nitrogen) 58 mg/dL (9.8-20.1); Calc. Creatinine Clearance 36 mL/min (70-130); Calcium 8.5 mg/dL (7.8-10.44); Carbon Dioxide 18 mmol/L (23-31); Chloride 116 mmol/L (98-107); Glucose 122 mg/dL (83-110); Potassium 4.5 mmol/L (3.5-5.1); Sodium 142 mmol/L (136-145)
[2021-11-02] MEDS: Atorvastatin Calcium 20 MG TAB PO SCH (20:07)
[2021-11-02 21:14] LABS: Hemoglobin 6.6 g/dL (12.0-16.0); Platelet Count 195 thou/uL (130-400)
[2021-11-02] MEDS: Octreotide Acetate 1,250 MCG in Sodium Chloride 0.9% 250 ML 250 ML IVPB SCH (22:49)
[2021-11-03 04:01] LABS: #Eosinphils 0.3 thou/uL (0.0-0.7); #Lymphocytes 1.5 thou/uL (1.20-3.40); #Monocytes 0.5 thou/uL (0.11-0.59); #Neutrophils 2.2 thou/uL (1.40-6.50); %Basophils 0.4 % (0.0-1.0); %Eosinophils 6.1 % (0.0-10.0); %Lymphocytes 32.9 % (21.0-51.0); %Monocytes 11.3 % (0.0-10.0); %Neutrophils 49.2 % (42.0-75.0); Hemoglobin 7.1 g/dL (12.0-16.0); Mean Corpuscular HGB CONC 33.5 g/dL (32.0-36.0); Mean Corpuscular Hemoglobin 27.4 pg (27.0-31.0); Mean Corpuscular Volume 81.9 fL (78.0-98.0); Mean Platelet Volume 7.5 fL (7.4-10.4); Platelet Count 186 thou/uL (130-400); RBC Distribution Width 19.9 % (11.5-14.5); Red Blood Cell (RBC) Count 2.58 mill/uL (4.20-5.40); White Blood Cell (WBC) Count 4.5 thou/uL (4.8-10.8)
[2021-11-03 04:16] LABS: ALT (SGPT) Less than 7 U/L (8-55); AST (SGOT) 13 U/L (5-34); Albumin 2.5 g/dL (3.4-4.8); Alkaline Phosphatase 35 U/L (40-110); Anion Gap 11 mmol/L (10-20); BUN (Urea Nitrogen) 45 mg/dL (9.8-20.1); Bilirubin, Total 0.8 mg/dL (0.2-1.2); Calc. Creatinine Clearance 43 mL/min (70-130); Calcium 7.9 mg/dL (7.8-10.44); Carbon Dioxide 20 mmol/L (23-31); Chloride 118 mmol/L (98-107); Glucose 116 mg/dL (83-110); Magnesium 2.3 mg/dL (1.6-2.6); Phosphorus 2.9 mg/dL (2.3-4.7); Potassium 4.1 mmol/L (3.5-5.1); Protein, Total 4.5 g/dL (5.8-8.1); Sodium 145 mmol/L (136-145)
[2021-11-03] MEDS ORDERED: Ketamine 50 MG/ML (10ML VIAL) ONE (08:00)
[2021-11-03] MEDS ORDERED: Midazolam HCl 2 mg/2 ml Vial ONE (08:00)
[2021-11-03] MEDS ORDERED: Rocuronium Bromide 10 MG/ML (10ML VIAL) ONE (08:15)
[2021-11-03] MEDS ORDERED: Glycopyrrolate 0.2 MG/ML 5 ML SYRINGE ONE (08:15)
[2021-11-03] MEDS ORDERED: Succinylcholine 200 MG/10 ml SYRINGE FS ONE (08:15)
[2021-11-03] MEDS ORDERED: PHENYLEPHRINE-NS 100 MCG/ML 10 ML SYRINGE ONE (08:15)
[2021-11-03] MEDS ORDERED: Ondansetron PF 4 MG/2 ML Vial ONE (08:15)
[2021-11-03] MEDS ORDERED: EPINEPHrine 1 MG/10 ML Abboject SYRINGE ONE (08:56)
[2021-11-03] MEDS ORDERED: Digoxin 0.125 MG TAB PO SCH (09:00)
[2021-11-03] MEDS ORDERED: Dronedarone HCl 400 MG TAB PO SCH (10:45)
[2021-11-03 10:47] LABS: Hemoglobin 7.6 g/dL (12.0-16.0)
[2021-11-03] MEDS: Pantoprazole 80 MG, Admixture Fee 1 EACH in Sodium Chloride 0.9% 100 ML IVPB SCH (12:18)
[2021-11-03] MEDS: Pantoprazole 40 MG VIAL IVP SCH (13:08)
[2021-11-03] MEDS: Sodium Chloride 0.9% 1,000 ML IV SCH (16:19)
[2021-11-03] MEDS: Dronedarone HCl 400 MG TAB PO SCH (17:09)
[2021-11-03] MEDS ORDERED: Chloraseptic Spray 180 ml Bottle PO PRN (18:39)
[2021-11-03] MEDS ORDERED: Cepastat Lozenges 1 LOZ PO PRN (18:48)
[2021-11-03] MEDS: Atorvastatin Calcium 20 MG TAB PO SCH (21:04)
[2021-11-03 22:31] LABS: Hemoglobin 8.5 g/dL (12.0-16.0); Platelet Count 225 thou/uL (130-400)
[2021-11-04 03:33] LABS: #Eosinphils 0.3 thou/uL (0.0-0.7); #Lymphocytes 1.7 thou/uL (1.20-3.40); #Monocytes 0.7 thou/uL (0.11-0.59); #Neutrophils 3.9 thou/uL (1.40-6.50); %Basophils 0.2 % (0.0-1.0); %Eosinophils 4.5 % (0.0-10.0); %Lymphocytes 26.1 % (21.0-51.0); %Monocytes 10.7 % (0.0-10.0); %Neutrophils 58.4 % (42.0-75.0); Hemoglobin 8.1 g/dL (12.0-16.0); Mean Corpuscular HGB CONC 33.3 g/dL (32.0-36.0); Mean Corpuscular Hemoglobin 27.8 pg (27.0-31.0); Mean Corpuscular Volume 83.3 fL (78.0-98.0); Mean Platelet Volume 11.4 fL (7.4-10.4); Platelet Count 223 thou/uL (130-400); RBC Distribution Width 19.8 % (11.5-14.5); Red Blood Cell (RBC) Count 2.92 mill/uL (4.20-5.40); White Blood Cell (WBC) Count 6.6 thou/uL (4.8-10.8)
[2021-11-04 03:55] LABS: ALT (SGPT) 8 U/L (8-55); AST (SGOT) 10 U/L (5-34); Albumin 2.6 g/dL (3.4-4.8); Alkaline Phosphatase 37 U/L (40-110); Anion Gap 10 mmol/L (10-20); BUN (Urea Nitrogen) 19 mg/dL (9.8-20.1); Bilirubin, Total 0.7 mg/dL (0.2-1.2); Calc. Creatinine Clearance 63 mL/min (70-130); Calcium 8.3 mg/dL (7.8-10.44); Carbon Dioxide 20 mmol/L (23-31); Chloride 119 mmol/L (98-107); Globulin 2.3 g/dL (2.4-3.5); Glucose 100 mg/dL (83-110); Magnesium 2.1 mg/dL (1.6-2.6); Phosphorus 3.1 mg/dL (2.3-4.7); Potassium 3.9 mmol/L (3.5-5.1); Protein, Total 4.9 g/dL (5.8-8.1); Sodium 145 mmol/L (136-145)
[2021-11-04] MEDS: Sodium Chloride 0.9% 1,000 ML IV SCH ×3 (05:49→20:49)
[2021-11-04] MEDS: Dronedarone HCl 400 MG TAB PO SCH ×2 (08:16→17:18)
[2021-11-04] MEDS: Pantoprazole 80 MG, Admixture Fee 1 EACH in Sodium Chloride 0.9% 100 ML IVPB SCH ×2 (08:16→18:18)
[2021-11-04] MEDS ORDERED: Iopamidol 370 76% 100 ML VIAL ONE (08:42)
[2021-11-04 10:00] LABS: Hemoglobin 8.3 g/dL (12.0-16.0); Platelet Count 205 thou/uL (130-400)
[2021-11-04] MEDS ORDERED: Lidocaine 1% (PF) 30 ML VIAL ONE (13:45)
[2021-11-04 18:08] LABS: Hemoglobin 8.9 g/dL (12.0-16.0); Platelet Count 266 thou/uL (130-400)
[2021-11-04] MEDS: Atorvastatin Calcium 20 MG TAB PO SCH (20:48)
[2021-11-05 00:49] LABS: SARS-CoV-2 PCR by NAA Not Detected (NotDetected)
[2021-11-05] MEDS: Acetaminophen 325 MG TAB PO PRN (00:50)
[2021-11-05 04:15] LABS: #Eosinphils 0.5 thou/uL (0.0-0.7); #Lymphocytes 1.9 thou/uL (1.20-3.40); #Monocytes 0.6 thou/uL (0.11-0.59); #Neutrophils 3.9 thou/uL (1.40-6.50); %Basophils 0.2 % (0.0-1.0); %Eosinophils 7.1 % (0.0-10.0); %Lymphocytes 27.7 % (21.0-51.0); %Monocytes 8.8 % (0.0-10.0); %Neutrophils 56.2 % (42.0-75.0); Hemoglobin 8.1 g/dL (12.0-16.0); Mean Corpuscular HGB CONC 32.8 g/dL (32.0-36.0); Mean Corpuscular Hemoglobin 27.2 pg (27.0-31.0); Mean Corpuscular Volume 82.8 fL (78.0-98.0); Mean Platelet Volume 11.3 fL (7.4-10.4); Platelet Count 236 thou/uL (130-400); RBC Distribution Width 19.9 % (11.5-14.5); Red Blood Cell (RBC) Count 2.99 mill/uL (4.20-5.40)
[2021-11-05 04:26] LABS: Anion Gap 8 mmol/L (10-20); BUN (Urea Nitrogen) 8 mg/dL (9.8-20.1); Calc. Creatinine Clearance 72 mL/min (70-130); Calcium 8.5 mg/dL (7.8-10.44); Carbon Dioxide 25 mmol/L (23-31); Chloride 115 mmol/L (98-107); Glucose 91 mg/dL (83-110); Potassium 3.5 mmol/L (3.5-5.1); Sodium 144 mmol/L (136-145)
[2021-11-05] MEDS: Pantoprazole 80 MG, Admixture Fee 1 EACH in Sodium Chloride 0.9% 100 ML IVPB SCH (04:26)
[2021-11-05] MEDS: Dronedarone HCl 400 MG TAB PO SCH ×2 (08:34→16:55)
[2021-11-05] MEDS: Lactated Ringer's 500 ML IV SCH ×2 (08:57→12:54)
[2021-11-05] MEDS: Sodium Chloride 0.9% 1,000 ML IV SCH (16:55)
[2021-11-05 20:45] LABS: Hemoglobin 8.8 g/dL (12.0-16.0); Mean Corpuscular HGB CONC 31.8 g/dL (32.0-36.0); Mean Corpuscular Hemoglobin 26.5 pg (27.0-31.0); Mean Corpuscular Volume 83.3 fL (78.0-98.0); Mean Platelet Volume 11.6 fL (7.4-10.4); Platelet Count 274 thou/uL (130-400); RBC Distribution Width 20.7 % (11.5-14.5); White Blood Cell (WBC) Count 8.8 thou/uL (4.8-10.8)
[2021-11-05] MEDS ORDERED: Albumin 25% 100 ML ONE (20:51)
[2021-11-05] MEDS ORDERED: Albumin 25% 25 GM/100 ML BOT IVPB SCH (21:00)
[2021-11-05] MEDS ORDERED: Sodium Chloride 0.9% 1,000 ML IV SCH (21:00)
[2021-11-05] MEDS: Atorvastatin Calcium 20 MG TAB PO SCH (21:29)
[2021-11-06] MEDS: Pantoprazole 80 MG, Admixture Fee 1 EACH in Sodium Chloride 0.9% 100 ML IVPB SCH (03:39)
[2021-11-06 04:19] LABS: #Eosinphils 0.3 thou/uL (0.0-0.7); #Lymphocytes 1.8 thou/uL (1.20-3.40); #Monocytes 0.7 thou/uL (0.11-0.59); #Neutrophils 5.9 thou/uL (1.40-6.50); %Basophils 0.4 % (0.0-1.0); %Lymphocytes 20.3 % (21.0-51.0); %Monocytes 8.1 % (0.0-10.0); %Neutrophils 68.2 % (42.0-75.0); Hemoglobin 9.1 g/dL (12.0-16.0); Mean Corpuscular HGB CONC 32.7 g/dL (32.0-36.0); Mean Corpuscular Hemoglobin 26.9 pg (27.0-31.0); Mean Corpuscular Volume 82.1 fL (78.0-98.0); Mean Platelet Volume 11.8 fL (7.4-10.4); Platelet Count 234 thou/uL (130-400); RBC Distribution Width 20.3 % (11.5-14.5); Red Blood Cell (RBC) Count 3.37 mill/uL (4.20-5.40); White Blood Cell (WBC) Count 8.7 thou/uL (4.8-10.8)
[2021-11-06 04:41] LABS: Anion Gap 14 mmol/L (10-20); BUN (Urea Nitrogen) 7 mg/dL (9.8-20.1); Calc. Creatinine Clearance 64 mL/min (70-130); Calcium 8.8 mg/dL (7.8-10.44); Carbon Dioxide 19 mmol/L (23-31); Chloride 114 mmol/L (98-107); Glucose 100 mg/dL (83-110); Potassium 3.5 mmol/L (3.5-5.1); Sodium 143 mmol/L (136-145)
[2021-11-06] MEDS ORDERED: Potassium Chloride 20 MEQ TAB PO SCH (06:30)
[2021-11-06] MEDS: Dronedarone HCl 400 MG TAB PO SCH (07:49)
[2021-11-06] MEDS ORDERED: Amiodarone In Dextrose 200 ML IVPB SCH (08:30)
[2021-11-06] MEDS ORDERED: Amiodarone 150 MG, Admixture Fee 1 EACH in Dextrose 5% in Water 100 ML IVPB SCH (08:30)
[2021-11-06 09:08] LABS: Hemoglobin 10.2 g/dL (12.0-16.0); Platelet Count 252 thou/uL (130-400)
[2021-11-06 16:31] LABS: Hemoglobin 8.7 g/dL (12.0-16.0)
[2021-11-06] MEDS: Sodium Chloride 0.9% 1,000 ML IV SCH (20:59)
[2021-11-06] MEDS: Atorvastatin Calcium 20 MG TAB PO SCH (21:03)
[2021-11-07] MEDS: Pantoprazole 80 MG, Admixture Fee 1 EACH in Sodium Chloride 0.9% 100 ML IVPB SCH ×2 (04:17→14:43)
[2021-11-07] MEDS: Atorvastatin Calcium 20 MG TAB PO SCH (21:29)
[2021-11-07] MEDS: Amiodarone 200 MG TAB PO SCH (21:29)
[2021-11-07] MEDS: Acetaminophen 325 MG TAB PO PRN (21:36)
[2021-11-07] MEDS: Pantoprazole 40 MG VIAL IVP SCH (21:37)
[2021-11-07] MEDS: Sodium Chloride 0.9% 1,000 ML IV SCH (22:06)
[2021-11-08 04:06] LABS: Hemoglobin 8.2 g/dL (12.0-16.0); Mean Corpuscular HGB CONC 33.9 g/dL (32.0-36.0); Mean Corpuscular Hemoglobin 27.8 pg (27.0-31.0); Mean Corpuscular Volume 82.2 fL (78.0-98.0); Mean Platelet Volume 11.1 fL (7.4-10.4); Platelet Count 193 thou/uL (130-400); RBC Distribution Width 20.5 % (11.5-14.5); Red Blood Cell (RBC) Count 2.95 mill/uL (4.20-5.40); White Blood Cell (WBC) Count 7.5 thou/uL (4.8-10.8)
[2021-11-08 04:30] LABS: Anion Gap 9 mmol/L (10-20); BUN (Urea Nitrogen) 7 mg/dL (9.8-20.1); Calc. Creatinine Clearance 75 mL/min (70-130); Calcium 8.7 mg/dL (7.8-10.44); Carbon Dioxide 21 mmol/L (23-31); Chloride 113 mmol/L (98-107); Glucose 89 mg/dL (83-110); Potassium 3.5 mmol/L (3.5-5.1); Sodium 139 mmol/L (136-145)
[2021-11-08] MEDS ORDERED: Potassium Chloride 20 MEQ TAB PO SCH (06:00)
[2021-11-08] MEDS ORDERED: Ergocalciferol 1.25 MG(50,000 UNITS) CAP PO SCH (09:00)
[2021-11-08] MEDS: Pantoprazole 40 MG VIAL IVP SCH ×2 (10:16→20:44)
[2021-11-08] MEDS: Amiodarone 200 MG TAB PO SCH ×2 (10:17→20:44)
[2021-11-08] MEDS: Acetaminophen 325 MG TAB PO PRN (11:11)
[2021-11-08 14:44] VITALS: BMI 25.9
[2021-11-08] MEDS: Sodium Chloride 0.9% 1,000 ML IV SCH (20:43)
[2021-11-08] MEDS: Atorvastatin Calcium 20 MG TAB PO SCH (20:44)
[2021-11-09 04:37] LABS: Hemoglobin 7.4 g/dL (12.0-16.0); Mean Corpuscular HGB CONC 32.3 g/dL (32.0-36.0); Mean Corpuscular Hemoglobin 26.8 pg (27.0-31.0); Mean Corpuscular Volume 82.8 fL (78.0-98.0); Mean Platelet Volume 11.2 fL (7.4-10.4); Platelet Count 206 thou/uL (130-400); RBC Distribution Width 20.6 % (11.5-14.5); Red Blood Cell (RBC) Count 2.76 mill/uL (4.20-5.40); White Blood Cell (WBC) Count 7.9 thou/uL (4.8-10.8)
[2021-11-09 04:56] LABS: Anion Gap 11 mmol/L (10-20); BUN (Urea Nitrogen) 11 mg/dL (9.8-20.1); Calc. Creatinine Clearance 70 mL/min (70-130); Calcium 8.5 mg/dL (7.8-10.44); Carbon Dioxide 20 mmol/L (23-31); Chloride 114 mmol/L (98-107); Glucose 89 mg/dL (83-110); Potassium 3.8 mmol/L (3.5-5.1); Sodium 141 mmol/L (136-145)
[2021-11-09] MEDS: Amiodarone 200 MG TAB PO SCH ×2 (09:27→20:55)
[2021-11-09] MEDS: Pantoprazole 40 MG VIAL IVP SCH ×2 (09:28→20:55)
[2021-11-09] MEDS: Sodium Chloride 0.9% 1,000 ML IV SCH (20:54)
[2021-11-09] MEDS: Acetaminophen 325 MG TAB PO PRN (20:54)
[2021-11-09] MEDS: Atorvastatin Calcium 20 MG TAB PO SCH (20:55)
[2021-11-10 05:25] LABS: Hemoglobin 7.4 g/dL (12.0-16.0); Mean Corpuscular HGB CONC 32.3 g/dL (32.0-36.0); Mean Corpuscular Hemoglobin 27.1 pg (27.0-31.0); Mean Corpuscular Volume 83.9 fL (78.0-98.0); Platelet Count 225 thou/uL (130-400); RBC Distribution Width 20.2 % (11.5-14.5); Red Blood Cell (RBC) Count 2.74 mill/uL (4.20-5.40); White Blood Cell (WBC) Count 8.1 thou/uL (4.8-10.8)
[2021-11-10] MEDS: Amiodarone 200 MG TAB PO SCH ×2 (10:31→21:33)
[2021-11-10] MEDS: Pantoprazole 40 MG VIAL IVP SCH ×2 (10:32→21:33)
[2021-11-10] MEDS: Atorvastatin Calcium 20 MG TAB PO SCH (21:33)
[2021-11-11 04:27] LABS: Hemoglobin 6.9 g/dL (12.0-16.0); Mean Corpuscular Hemoglobin 26.3 pg (27.0-31.0); Mean Corpuscular Volume 82.4 fL (78.0-98.0); Mean Platelet Volume 11.1 fL (7.4-10.4); Platelet Count 272 thou/uL (130-400); RBC Distribution Width 20.2 % (11.5-14.5); White Blood Cell (WBC) Count 7.4 thou/uL (4.8-10.8)
[2021-11-11] MEDS: Pantoprazole 40 MG VIAL IVP SCH ×2 (09:01→20:29)
[2021-11-11] MEDS: Amiodarone 200 MG TAB PO SCH ×2 (09:01→20:28)
[2021-11-11] MEDS ORDERED: Docusate 100 MG CAP PO PRN (11:41)
[2021-11-11] MEDS ORDERED: Docusate 100 MG CAP PO SCH (11:45)
[2021-11-11 18:40] LABS: Hemoglobin 8.5 g/dL (12.0-16.0)
[2021-11-11] MEDS: Atorvastatin Calcium 20 MG TAB PO SCH (20:28)
[2021-11-11] MEDS: Acetaminophen 325 MG TAB PO PRN (20:37)
[2021-11-11 23:59] LABS: SARS-CoV-2 PCR by NAA Not Detected (NotDetected)
[2021-11-12 03:58] LABS: Mean Corpuscular HGB CONC 31.7 g/dL (32.0-36.0); Mean Corpuscular Hemoglobin 26.7 pg (27.0-31.0); Mean Corpuscular Volume 84.3 fL (78.0-98.0); Mean Platelet Volume 10.9 fL (7.4-10.4); Platelet Count 276 thou/uL (130-400); RBC Distribution Width 20.4 % (11.5-14.5); Red Blood Cell (RBC) Count 2.99 mill/uL (4.20-5.40); White Blood Cell (WBC) Count 8.2 thou/uL (4.8-10.8)
[2021-11-12] MEDS: Amiodarone 200 MG TAB PO SCH ×2 (09:32→20:50)
[2021-11-12] MEDS: Pantoprazole 40 MG VIAL IVP SCH ×2 (09:32→20:50)
[2021-11-12] MEDS ORDERED: Furosemide 20 MG/2 ML VIAL SLOW IVP SCH (12:15)
[2021-11-12] MEDS: Atorvastatin Calcium 20 MG TAB PO SCH (20:50)
[2021-11-12] MEDS: Acetaminophen 325 MG TAB PO PRN (20:53)
[2021-11-13 04:31] LABS: Hemoglobin 8.3 g/dL (12.0-16.0); Mean Corpuscular HGB CONC 32.2 g/dL (32.0-36.0); Mean Corpuscular Hemoglobin 26.7 pg (27.0-31.0); Mean Corpuscular Volume 82.8 fL (78.0-98.0); Mean Platelet Volume 10.9 fL (7.4-10.4); Platelet Count 295 thou/uL (130-400); RBC Distribution Width 19.8 % (11.5-14.5); White Blood Cell (WBC) Count 8.6 thou/uL (4.8-10.8)
[2021-11-13 04:52] LABS: Anion Gap 12 mmol/L (10-20); BUN (Urea Nitrogen) 7 mg/dL (9.8-20.1); Calc. Creatinine Clearance 70 mL/min (70-130); Calcium 8.9 mg/dL (7.8-10.44); Carbon Dioxide 21 mmol/L (23-31); Chloride 108 mmol/L (98-107); Glucose 83 mg/dL (83-110); Potassium 3.3 mmol/L (3.5-5.1); Sodium 138 mmol/L (136-145)
[2021-11-13] MEDS ORDERED: Furosemide 20 MG TAB PO SCH (09:00)
[2021-11-13] MEDS: Amiodarone 200 MG TAB PO SCH (09:29)
[2021-11-13] MEDS: Pantoprazole 40 MG VIAL IVP SCH (09:29)
[2021-11-13] MEDS ORDERED: Potassium Chloride 20 MEQ TAB PO SCH (10:00)
[2021-11-13 13:09] VITALS: BP 126/60; TEMP 98.7
== END 2021-11-13 14:30 | DRG 308 ==
LOC: ERS 13:06 → 2NO 15:49 → OBSVTOIN 10-29 15:45 → CCU 11-01 23:23 → IMCU/EMU 11-05 09:44 → 2NO 11-07 17:51
PROVIDERS: ADMIT Internal Medicine; ATTEND Internal Medicine
PROC: 5A2204Z Restoration of Cardiac Rhythm, Single (ICD-10-PCS; 2021-10-29)
PROC: B24BZZ4 Ultrasonography of Heart with Aorta, Transesophageal (ICD-10-PCS; 2021-10-29)
PROC: 30233N1 Transfusion of Nonautologous Red Blood Cells into Peripheral Vein, Percutaneous Approach (ICD-10-PCS; 2021-11-01)
PROC: 5A2204Z Restoration of Cardiac Rhythm, Single (ICD-10-PCS; 2021-11-01)
PROC: 3E033XZ Introduction of Vasopressor into Peripheral Vein, Percutaneous Approach (ICD-10-PCS; 2021-11-02)
PROC: 0W3P8ZZ Control Bleeding in Gastrointestinal Tract, Via Natural or Artificial Opening Endoscopic (ICD-10-PCS; 2021-11-03)
PROC: 0DC78ZZ Extirpation of Matter from Stomach, Pylorus, Via Natural or Artificial Opening Endoscopic (ICD-10-PCS; 2021-11-03)
PROC: 06H03DZ Insertion of Intraluminal Device into Inferior Vena Cava, Percutaneous Approach (ICD-10-PCS; principal; 2021-11-04)
DX: I48.0 Paroxysmal atrial fibrillation (principal); I50.31 Acute diastolic (congestive) heart failure; K25.4 Chronic or unspecified gastric ulcer with hemorrhage; N17.9 Acute kidney failure, unspecified; D62 Acute posthemorrhagic anemia; I82.442 Acute embolism and thrombosis of left tibial vein; Z51.5 Encounter for palliative care; I27.20 Pulmonary hypertension, unspecified; K21.9 Gastro-esophageal reflux disease without esophagitis; E78.5 Hyperlipidemia, unspecified; I08.3 Combined rheumatic disorders of mitral, aortic and tricuspid valves; K56.41 Fecal impaction; D50.9 Iron deficiency anemia, unspecified; I11.0 Hypertensive heart disease with heart failure; I95.9 Hypotension, unspecified; E83.42 Hypomagnesemia; E87.6 Hypokalemia; E83.39 Other disorders of phosphorus metabolism; Z79.01 Long term (current) use of anticoagulants; Z86.711 Personal history of pulmonary embolism; Z79.899 Other long term (current) drug therapy; Z98.890 Other specified postprocedural states; Z90.49 Acquired absence of other specified parts of digestive tract
CPT/HCPCS: 36415; 36416; 36430; 37191; 71045; 74176; 80048; 80053; 80069; 81003; 82274; 82533; 83690; 83735; 83880; 84100; 84443; 84484; 85025; 85027; 85046; 86850; 86900; 86901; 87338; 92960; 93005; 93010; 93312; 93970; 96374; C1880; C9113; G0378; J0171; J0282; J1160; J1940; J2001; J2250; J2354; J2405; J2704; J3475; J3490; J7030; J7050; J7070; J7120; P9016; P9047; Q9967; U0003; U0005

== ENCOUNTER 2022-08-19 18:46 | Inpatient (IN) | payer MEDICARE ==
[2022-08-19] MEDS ORDERED: Magnesium 2 GM/50 ML BAG (IN WATER) ONE (18:48)
[2022-08-19] MEDS ORDERED: methylPREDNISolone Sod Succ/PF 125 MG/2 ML VIAL ONE (18:48)
[2022-08-19] MEDS ORDERED: Ipratropium/Albuterol 3 ML NEB ONE ×2 (18:55→20:48)
[2022-08-19 19:03] LABS: Actual Bicarbonate (HCO3v) 18 mEq/L (22-28); Analyzer IN Cardio ER; Base Excess -5.7 mEq/L (-2.0 to +3.0); Calcium, Ionized (venous) 1.15 mmol/L (1.16-1.32); Chloride (VBG) 107 mmol/L (98-106); Hemoglobin (Hb) 11.8 g/dL (11.7-16.1); Potassium (VBG) 3.54 mmol/L (3.70-5.30); Sodium 136.5 mmol/L (133-146); pH (venous) 7.38 (7.32-7.43)
[2022-08-19 19:11] LABS: Hemoglobin 10.9 g/dL (12.0-16.0); Mean Corpuscular HGB CONC 34.9 g/dL (32.0-36.0); Mean Corpuscular Hemoglobin 31.8 pg (27.0-31.0); Mean Platelet Volume 10.4 fL (7.4-10.4); Platelet Count 183 10x3/uL (130-400); RBC Distribution Width 15.6 % (11.5-14.5); Red Blood Cell (RBC) Count 3.43 mill/uL (4.20-5.40); White Blood Cell (WBC) Count 5.8 10x3/uL (4.8-10.8)
[2022-08-19 19:29] LABS: ALT (SGPT) 16 U/L (8-55); AST (SGOT) 29 U/L (5-34); Albumin 4.3 g/dL (3.4-4.8); Alkaline Phosphatase 60 U/L (40-110); Anion Gap 18 mmol/L (10-20); BUN (Urea Nitrogen) 14 mg/dL (9.8-20.1); Bilirubin, Total 0.5 mg/dL (0.2-1.2); Calc. Creatinine Clearance 0 mL/min (70-130); Calcium 10.2 mg/dL (7.8-10.44); Carbon Dioxide 17 mmol/L (23-31); Chloride 107 mmol/L (98-107); Eosinophils 6 % (0-10); Estimated GFR 63; Globulin 3.3 g/dL (2.4-3.5); Glucose 122 mg/dL (83-110); Lymphocytes 46 % (21-51); MDiff Complete? YES; Monocytes 7 % (0-10); Neutrophil 24 % (42-75); Platelet Morphology Comment Appears Adequate; Potassium 3.5 mmol/L (3.5-5.1); Protein, Total 7.6 g/dL (5.8-8.1); RBC Morphology Normal; Reactive Lymphocytes 15 % (0-10); Sodium 138 mmol/L (136-145)
[2022-08-19] MEDS ORDERED: Acetaminophen 500 MG TAB ONE (19:33)
[2022-08-19] MEDS ORDERED: HYDROcodone/Acetaminophen 5/325 mg Tablet PO PRN (23:11)
[2022-08-19 23:24] LABS: Actual Bicarbonate (HCO3v) 21 mEq/L (22-28); Analyzer IN Cardio ER; Base Excess -5.4 mEq/L (-2.0 to +3.0); Calcium, Ionized (venous) 1.22 mmol/L (1.16-1.32); Chloride (VBG) 104 mmol/L (98-106); Hemoglobin (Hb) 11.2 g/dL (11.7-16.1); Potassium (VBG) 3.69 mmol/L (3.70-5.30); Sodium 138.5 mmol/L (133-146); pH (venous) 7.28 (7.32-7.43)
[2022-08-20 00:30] VITALS: BMI 29.6
[2022-08-20] MEDS ORDERED: Pantoprazole 40 MG VIAL IVP SCH (01:00)
[2022-08-20] MEDS: HYDROcodone/Acetaminophen 5/325 mg Tablet PO PRN ×3 (01:03→19:53)
[2022-08-20 05:00] LABS: Actual Bicarbonate (HCO3v) 19 mEq/L (22-28); Base Excess -4.7 mEq/L (-2.0 to +3.0); Calcium, Ionized (venous) 1.18 mmol/L (1.16-1.32); Chloride (VBG) 107 mmol/L (98-106); Potassium (VBG) 4.49 mmol/L (3.70-5.30); Sodium 138.8 mmol/L (133-146); pH (venous) 7.43 (7.32-7.43)
[2022-08-20 05:08] LABS: #Lymphocytes 0.3 thou/uL (1.20-3.40); #Monocytes 0.6 thou/uL (0.11-0.59); #Neutrophils 10.7 thou/uL (1.40-6.50); %Basophils 0.1 % (0.0-1.0); %Eosinophils 0.2 % (0.0-10.0); %Lymphocytes 2.9 % (21.0-51.0); %Monocytes 4.7 % (0.0-10.0); %Neutrophils 92.1 % (42.0-75.0); Hemoglobin 10.4 g/dL (12.0-16.0); Mean Corpuscular HGB CONC 33.6 g/dL (32.0-36.0); Mean Corpuscular Hemoglobin 30.9 pg (27.0-31.0); Mean Corpuscular Volume 91.7 fl (78.0-98.0); Platelet Count 171 10x3/uL (130-400); RBC Distribution Width 15.4 % (11.5-14.5); Red Blood Cell (RBC) Count 3.36 mill/uL (4.20-5.40); White Blood Cell (WBC) Count 11.6 10x3/uL (4.8-10.8)
[2022-08-20 05:37] LABS: Anion Gap 17 mmol/L (10-20); BUN (Urea Nitrogen) 14 mg/dL (9.8-20.1); Calc. Creatinine Clearance 70 mL/min (70-130); Carbon Dioxide 17 mmol/L (23-31); Chloride 109 mmol/L (98-107); Estimated GFR 67; Glucose 167 mg/dL (83-110); Potassium 4.5 mmol/L (3.5-5.1); Sodium 138 mmol/L (136-145)
[2022-08-20] MEDS: Apixaban 5 MG TAB PO SCH ×2 (08:12→19:52)
[2022-08-20] MEDS: Lisinopril 10 MG TAB PO SCH (08:12)
[2022-08-20] MEDS: Furosemide 20 MG TAB PO SCH (08:13)
[2022-08-20] MEDS ORDERED: Iopamidol 370 76% 100 ML VIAL ONE (09:07)
[2022-08-20] MEDS ORDERED: methylPREDNISolone Sod Succ/PF 125 MG/2 ML VIAL IVP SCH (13:00)
[2022-08-20] MEDS ORDERED: guaiFENesin ER 600 MG TAB PO SCH (13:30)
[2022-08-20 13:59] LABS: Actual Bicarbonate (HCO3a) 21.4 mEq/L (22-28); Base Excess (BEa) -3.9 mEq/L (-2.0 to +3.0); CO2 Tension 39.7 mmHg (35.0-45.0); Calcium, Ionized (arterial) 1.28 mmol/L (1.12-1.30); Hemoglobin (Hb) 10.4 g/dL (12.0-16.0); O2 Tension (PaO2), arterial 272.1 mmHg (> 70.0); pH, Arterial 7.35 (7.35-7.45)
[2022-08-20] MEDS ORDERED: cefTRIAXone\\ROCEPHIN 1 GM in Sodium Chloride 0.9% 100 ML IVPB SCH (14:00)
[2022-08-20 14:04] LABS: Puncture Site RR
[2022-08-20 14:06] LABS: ALV-art Gradient 391.275 mmHg (0-20)
[2022-08-20] MEDS ORDERED: Piperacillin/Tazobactam 3.375 GM in Sodium Chloride 0.9% 100 ML IVPB SCH ×2 (16:00→20:00)
[2022-08-20] MEDS: methylPREDNISolone Sod Succ 40 MG VIAL IVP SCH (17:28)
[2022-08-20] MEDS ORDERED: Cyanide Antidote Kit IVPB SCH (17:45)
[2022-08-20] MEDS: Ipratropium/Albuterol 3 ML NEB NEB SCH ×2 (18:45→18:51)
[2022-08-20] MEDS: Budesonide 0.5 MG/2 ML NEB NEB SCH (18:46)
[2022-08-20] MEDS: Famotidine 20 MG TAB PO SCH (19:52)
[2022-08-20] MEDS: Azithromycin 500 MG in Sodium Chloride 0.9% 250 ML 250 ML IVPB SCH (19:52)
[2022-08-20] MEDS: Piperacillin/Tazobactam 3.375 GM in Sodium Chloride 0.9% 100 ML IVPB SCH (19:52)
[2022-08-20] MEDS: guaiFENesin ER 600 MG TAB PO SCH (19:53)
[2022-08-21] MEDS: methylPREDNISolone Sod Succ 40 MG VIAL IVP SCH ×4 (00:34→17:15)
[2022-08-21] MEDS: Morphine 2 MG/ML VIAL SLOW IVP PRN ×2 (04:03→14:41)
[2022-08-21] MEDS: Piperacillin/Tazobactam 3.375 GM in Sodium Chloride 0.9% 100 ML IVPB SCH ×3 (04:04→20:25)
[2022-08-21 04:56] LABS: Hemoglobin 10.6 g/dL (12.0-16.0); Mean Corpuscular HGB CONC 34.5 g/dL (32.0-36.0); Mean Corpuscular Hemoglobin 31.5 pg (27.0-31.0); Mean Corpuscular Volume 91.4 fl (78.0-98.0); RBC Distribution Width 15.4 % (11.5-14.5); Red Blood Cell (RBC) Count 3.35 mill/uL (4.20-5.40); White Blood Cell (WBC) Count 15.3 10x3/uL (4.8-10.8)
[2022-08-21 05:19] LABS: Anion Gap 14 mmol/L (10-20); BUN (Urea Nitrogen) 17 mg/dL (9.8-20.1); CRP (Inflammatory) 18.71 mg/dL (= or < 0.5); Calc. Creatinine Clearance 58 mL/min (70-130); Calcium 10.4 mg/dL (7.8-10.44); Carbon Dioxide 23 mmol/L (23-31); Chloride 107 mmol/L (98-107); Estimated GFR 57; Glucose 143 mg/dL (83-110); Sodium 139 mmol/L (136-145)
[2022-08-21 05:31] LABS: #Lymphocytes 0.4 thou/uL (1.20-3.40); #Monocytes 0.7 thou/uL (0.11-0.59); #Neutrophils 14.2 thou/uL (1.40-6.50); %Eosinophils 0.1 % (0.0-10.0); %Lymphocytes 2.3 % (21.0-51.0); %Monocytes 4.4 % (0.0-10.0); %Neutrophils 93.1 % (42.0-75.0); Large Platelets SLIGHT; MDiff Complete? YES; Mean Platelet Volume 11.1 fL (7.4-10.4); Platelet Count 150 10x3/uL (130-400); Platelet Morphology Comment Appears Adequate
[2022-08-21] MEDS: Ipratropium/Albuterol 3 ML NEB NEB SCH ×4 (07:08→18:20)
[2022-08-21] MEDS: Budesonide 0.5 MG/2 ML NEB NEB SCH ×2 (07:09→18:54)
[2022-08-21] MEDS: Famotidine 20 MG TAB PO SCH ×2 (08:23→20:25)
[2022-08-21] MEDS: Furosemide 20 MG TAB PO SCH (08:23)
[2022-08-21] MEDS: Lisinopril 10 MG TAB PO SCH (08:23)
[2022-08-21] MEDS: guaiFENesin ER 600 MG TAB PO SCH ×2 (08:23→20:25)
[2022-08-21] MEDS: Apixaban 5 MG TAB PO SCH ×2 (08:25→20:25)
[2022-08-21 17:19] LABS: Actual Bicarbonate (HCO3v) 27 mEq/L (22-28); Base Excess -0.6 mEq/L (-2.0 to +3.0); Calcium, Ionized (venous) 1.33 mmol/L (1.16-1.32); Chloride (VBG) 107 mmol/L (98-106); Hemoglobin (Hb) 11.7 g/dL (11.7-16.1); Potassium (VBG) 4.55 mmol/L (3.70-5.30); Sodium 143.2 mmol/L (133-146); pH (venous) 7.29 (7.32-7.43)
[2022-08-21] MEDS: HYDROcodone/Acetaminophen 5/325 mg Tablet PO PRN (20:25)
[2022-08-21] MEDS: Azithromycin 500 MG in Sodium Chloride 0.9% 250 ML 250 ML IVPB SCH (20:25)
[2022-08-22] MEDS: methylPREDNISolone Sod Succ 40 MG VIAL IVP SCH ×5 (00:07→23:11)
[2022-08-22 04:25] LABS: Anion Gap 14 mmol/L (10-20); BUN (Urea Nitrogen) 21 mg/dL (9.8-20.1); Calc. Creatinine Clearance 60 mL/min (70-130); Calcium 10.3 mg/dL (7.8-10.44); Carbon Dioxide 24 mmol/L (23-31); Chloride 108 mmol/L (98-107); Estimated GFR 59; Glucose 135 mg/dL (83-110); Potassium 4.9 mmol/L (3.5-5.1); Sodium 141 mmol/L (136-145)
[2022-08-22 04:35] LABS: #Lymphocytes 0.4 thou/uL (1.20-3.40); #Monocytes 0.8 thou/uL (0.11-0.59); #Neutrophils 12.8 thou/uL (1.40-6.50); %Eosinophils 0.1 % (0.0-10.0); %Lymphocytes 2.7 % (21.0-51.0); %Monocytes 5.6 % (0.0-10.0); %Neutrophils 91.6 % (42.0-75.0); Hemoglobin 10.6 g/dL (12.0-16.0); Mean Corpuscular HGB CONC 33.2 g/dL (32.0-36.0); Mean Corpuscular Hemoglobin 30.6 pg (27.0-31.0); Mean Corpuscular Volume 92.1 fl (78.0-98.0); Mean Platelet Volume 11.2 fL (7.4-10.4); Platelet Count 149 10x3/uL (130-400); RBC Distribution Width 15.7 % (11.5-14.5); Red Blood Cell (RBC) Count 3.46 mill/uL (4.20-5.40)
[2022-08-22] MEDS: Piperacillin/Tazobactam 3.375 GM in Sodium Chloride 0.9% 100 ML IVPB SCH (04:43)
[2022-08-22] MEDS: HYDROcodone/Acetaminophen 5/325 mg Tablet PO PRN ×2 (04:43→22:37)
[2022-08-22] MEDS: Ipratropium/Albuterol 3 ML NEB NEB SCH ×4 (06:46→19:50)
[2022-08-22] MEDS: Budesonide 0.5 MG/2 ML NEB NEB SCH ×2 (06:48→19:54)
[2022-08-22] MEDS: Furosemide 20 MG TAB PO SCH (09:07)
[2022-08-22] MEDS: guaiFENesin ER 600 MG TAB PO SCH ×2 (09:07→22:38)
[2022-08-22] MEDS: Famotidine 20 MG TAB PO SCH ×2 (09:07→22:38)
[2022-08-22] MEDS: Apixaban 5 MG TAB PO SCH ×2 (09:07→22:38)
[2022-08-22] MEDS: Lisinopril 10 MG TAB PO SCH (09:08)
[2022-08-22] MEDS: Amoxicillin/Potassium Clav 875 MG TAB PO SCH (23:04)
[2022-08-23] MEDS: methylPREDNISolone Sod Succ 40 MG VIAL IVP SCH ×3 (06:29→21:58)
[2022-08-23] MEDS: guaiFENesin ER 600 MG TAB PO SCH ×2 (08:19→21:58)
[2022-08-23] MEDS: Amoxicillin/Potassium Clav 875 MG TAB PO SCH ×2 (08:20→21:58)
[2022-08-23] MEDS: Famotidine 20 MG TAB PO SCH (08:20)
[2022-08-23] MEDS: Lisinopril 10 MG TAB PO SCH (08:20)
[2022-08-23] MEDS: Apixaban 5 MG TAB PO SCH ×2 (08:26→21:58)
[2022-08-23] MEDS: Furosemide 20 MG TAB PO SCH (08:26)
[2022-08-23] MEDS: HYDROcodone/Acetaminophen 5/325 mg Tablet PO PRN ×2 (08:28→21:58)
[2022-08-23] MEDS: Ipratropium/Albuterol 3 ML NEB NEB SCH ×4 (08:30→18:35)
[2022-08-23] MEDS: Budesonide 0.5 MG/2 ML NEB NEB SCH ×2 (08:31→18:35)
[2022-08-23 09:18] LABS: #Lymphocytes 0.6 thou/uL (1.20-3.40); #Monocytes 0.6 thou/uL (0.11-0.59); #Neutrophils 9.5 thou/uL (1.40-6.50); %Eosinophils 0.1 % (0.0-10.0); %Lymphocytes 5.4 % (21.0-51.0); %Monocytes 5.8 % (0.0-10.0); %Neutrophils 88.8 % (42.0-75.0); Hemoglobin 10.9 g/dL (12.0-16.0); Mean Corpuscular Volume 93.8 fl (78.0-98.0); Mean Platelet Volume 10.9 fL (7.4-10.4); Platelet Count 195 10x3/uL (130-400); RBC Distribution Width 15.3 % (11.5-14.5); Red Blood Cell (RBC) Count 3.52 mill/uL (4.20-5.40); White Blood Cell (WBC) Count 10.7 10x3/uL (4.8-10.8)
[2022-08-23 09:38] LABS: Anion Gap 14 mmol/L (10-20); BUN (Urea Nitrogen) 30 mg/dL (9.8-20.1); Calc. Creatinine Clearance 58 mL/min (70-130); Calcium 10.5 mg/dL (7.8-10.44); Carbon Dioxide 24 mmol/L (23-31); Chloride 109 mmol/L (98-107); Estimated GFR 58; Glucose 121 mg/dL (83-110); Potassium 4.3 mmol/L (3.5-5.1); Sodium 143 mmol/L (136-145)
[2022-08-24] MEDS: Ipratropium/Albuterol 3 ML NEB NEB SCH ×4 (07:30→18:33)
[2022-08-24] MEDS: Budesonide 0.5 MG/2 ML NEB NEB SCH ×2 (07:32→18:33)
[2022-08-24] MEDS: methylPREDNISolone Sod Succ 40 MG VIAL IVP SCH (08:52)
[2022-08-24] MEDS: Amoxicillin/Potassium Clav 875 MG TAB PO SCH ×2 (08:52→20:20)
[2022-08-24] MEDS: Lisinopril 10 MG TAB PO SCH (08:53)
[2022-08-24] MEDS: guaiFENesin ER 600 MG TAB PO SCH ×2 (08:53→20:20)
[2022-08-24] MEDS: Apixaban 5 MG TAB PO SCH ×2 (08:54→20:20)
[2022-08-25] MEDS: Budesonide 0.5 MG/2 ML NEB NEB SCH ×2 (07:03→19:00)
[2022-08-25] MEDS: Ipratropium/Albuterol 3 ML NEB NEB SCH ×4 (07:06→19:00)
[2022-08-25] MEDS ORDERED: methylPREDNISolone Sod Succ 40 MG VIAL IVP SCH (09:00)
[2022-08-25] MEDS: guaiFENesin ER 600 MG TAB PO SCH ×2 (09:05→20:34)
[2022-08-25] MEDS: Amoxicillin/Potassium Clav 875 MG TAB PO SCH ×2 (09:05→20:34)
[2022-08-25] MEDS: Lisinopril 10 MG TAB PO SCH (09:06)
[2022-08-25] MEDS: Apixaban 5 MG TAB PO SCH ×2 (09:06→20:34)
[2022-08-25] MEDS ORDERED: Chloraseptic Spray 180 ml Bottle PO PRN (11:37)
[2022-08-26] MEDS: Budesonide 0.5 MG/2 ML NEB NEB SCH (06:48)
[2022-08-26] MEDS: Ipratropium/Albuterol 3 ML NEB NEB SCH ×3 (06:48→15:05)
[2022-08-26] MEDS ORDERED: predniSONE 20 MG TAB PO SCH (08:00)
[2022-08-26] MEDS: Lisinopril 10 MG TAB PO SCH (08:21)
[2022-08-26] MEDS: Apixaban 5 MG TAB PO SCH (08:22)
[2022-08-26] MEDS: guaiFENesin ER 600 MG TAB PO SCH (08:22)
[2022-08-26] MEDS: Amoxicillin/Potassium Clav 875 MG TAB PO SCH (08:22)
[2022-08-26] MEDS ORDERED: Furosemide 20 MG/2 ML VIAL SLOW IVP SCH (15:15)
[2022-08-26 16:43] VITALS: BP 104/65; TEMP 99.2
== END 2022-08-26 17:05 | DRG 917 ==
LOC: ERS 18:46 → SUATTDRO 18:46 → 2SW 23:10 → OBSVTOIN 08-20 12:59 → IMCU/EMU 08-20 18:25 → T4-A 08-24 21:28
PROVIDERS: ADMIT Family Medicine; ATTEND Internal Medicine
DX: T58.91XA Toxic effect of carbon monoxide from unspecified source, accidental (unintentional), initial encounter (principal); J18.9 Pneumonia, unspecified organism; J96.01 Acute respiratory failure with hypoxia; T59.811A Toxic effect of smoke, accidental (unintentional), initial encounter; Z66 Do not resuscitate; Z51.5 Encounter for palliative care; Z20.822 Contact with and (suspected) exposure to COVID-19; I48.0 Paroxysmal atrial fibrillation; I10 Essential (primary) hypertension; Z79.899 Other long term (current) drug therapy; Z86.711 Personal history of pulmonary embolism
CPT/HCPCS: 36415; 36416; 71045; 71260; 80048; 80053; 82805; 84145; 85025; 85652; 86140; 93005; 93970; 94640; 94760; 96374; 96375; C9113; G0378; J0456; J0696; J1940; J2272; J2543; J2920; J2930; J3475; J3490; J7050; J7512; J7611; J7620; J7626; Q9967; U0003; U0005